=== PATIENT | female | born 1930 | race Caucasian/White ===

== ENCOUNTER 2016-09-02 12:45 | Inpatient (IN) | payer MEDICARE, OTHER ==
--- NOTE | ~2016-09-02 | HP ---
History And Physical [facility] [address] [place]. [address] NAME: SAMUEL ROSSI : 29 STATUS : ADM Amy PAT#: [id number] AGE: 85 ADM/REG DATE : 09/02/16 MR#: [id number] REPORT SERV DATE: 09/02/16 DICTATED BY: ARNIE LAMB DATE: 09/02/16 REPORT STATUS : Draft TRANSCRIBED BY: LIONEL DATE: 09/02/16 DATE OF ADMISSION: 09/02/2016 CHIEF COMPLAINT: Weakness in the left arm with stroke-type symptoms. HISTORY OF PRESENT ILLNESS: The patient is an 85-year-old female with past medical history of hypertension, hyperlipidemia, TIAs with also prior history of brain bleed in 06/2015, who presents around 10 to 10:30 today over five hours ago with left arm type weakness. No slurred speech. She has previously had an experience with TIAs. Symptoms were intermittent, moderate severity, have since improved. Initially when she came in, she was having difficulty elevating and extending hand and arm, but this has since resolved. She had no pain, radiating symptoms. No nausea, vomiting, fever, chills, or diarrhea. Did have weakness, but now is able to fully function. She is able to lift hand above head and appears to be able to do her ADLs. She is eating at bedside there are no worsening or relieving symptoms. Symptoms appear to be fairly better if not resolved. Emergency room and Neurology saw a non tPA candidate due to history of bleed and resolution of symptoms. ADDITIONAL REVIEW OF SYSTEMS: A 10-point review of systems negative except that noted in HPI. PAST MEDICAL HISTORY: Hypertension, hyperlipidemia, TIAs, and has had history of breast cancer, which the patient had radiation approximately 18 years ago in late . FAMILY HISTORY: Hypertension, cancer, and heart disease. SOCIAL HISTORY: . Lives alone. No smoking, alcohol, or illicits. Retired. Accompanied by son and grandson. SURGERIES: Has had gallbladder surgery. PHYSICAL EXAMINATION: VITAL SIGNS: The patient's temperature 98.2, pulse 98, respirations 18, O2 saturations 96% on room air, blood pressure 157/74. GENERAL: No acute distress. Calm, pleasant. HEAD: Normocephalic, atraumatic. EYES: No scleral icterus. EOMI. No nystagmus. ENT: Moist mucous membranes. Nares patent. Tongue midline. RESPIRATORY: Clear to auscultation. No wheezes, rales, or rhonchi. CV: Regular rate. No rubs or gallops. GI: Soft, nontender, and nondistended. Bowel sounds positive. : Deferred. MUSCULOSKELETAL: Moves all extremities x4. Equal hand production clerk bilaterally. No drift or deviation currently. SKIN: Warm and dry, but does have bruising on lower extremities. LYMPH: No cervical or supraclavicular lymphadenopathy. HEME: Does have bruising on lower extremities on shins. History And Physical [address] [place]. [address] NAME: SAMUEL ROSSI : 29 STATUS : ADM Amy PAT#: [id number] AGE: 85 ADM/REG DATE : 09/02/16 MR#: [id number] REPORT SERV DATE: 09/02/16 DICTATED BY: ARNIE LAMB DATE: 09/02/16 REPORT STATUS : Draft TRANSCRIBED BY: LIONEL DATE: 09/02/16 NEURO: Left and right arm appear symmetrical at this time, 5/5. Unable to symmetrically production clerk. No nystagmus in eyes. Symmetrical smile. Tongue midline. Symmetrical eyebrow. Sensation is still grossly intact. LOWER EXTREMITIES: Equal. No gross drift at this time. Symmetrical vocal dejuan and passed bedside swallow. Is able to tolerate p.o. at this time. PSYCH: Appropriate mood and affect. EKG: Normal sinus rhythm, rate 75, and QTc 415. ALLERGIES: NO KNOWN ALLERGIES. HOME MEDICATIONS: Aspirin 81 mg, atorvastatin 20 mg daily, and Prinivil 10 mg daily. IMAGING: CT, no acute intracranial abnormalities, but moderate cortical volume loss. Findings compatible with moderate chronic deep white matter ischemic changes. Findings compatible with small old left frontal cortical infarct. LABORATORY DATA: H and H 14.3 and 42.9, WBC 6.9, platelets 235. LFTs within normal limits. Troponin negative. Sodium 145, potassium 4.4, BUN and creatinine 17 and 0.93, glucose 85, chloride 108, bicarb 28. ASSESSMENT AND PLAN: 1. Transient ischemic attack. 2. Hypertension. 3. Hyperlipidemia. 4. Prior head bleed, non tPA candidate. 5. Transient ischemic attack history. PLAN: 1. For TIA, stroke protocol TIA initiated. Aspirin, high-dose statin, non tPA. PT, OT, ST evaluation. Currently having minimal residuals at this time, almost back to baseline. We will obtain MRI, MRA. Also evaluate carotids along with echocardiogram, as the patient has had history of TIAs in the past. We will complete workup. Has been already seen by Neurology team. 2. Hypertension. Lisinopril. 3. Hyperlipidemia. Increase statin dose. 4. Prior head bleed. Non tPA candidate and TIA history. All questions answered. DDN/MODL Arnie Lamb MD History And Physical [address] [address] NAME: SAMUEL ROSSI : 29 STATUS : ADM Amy PAT#: [id number] AGE: 85 ADM/REG DATE : 09/02/16 MR#: [id number] REPORT SERV DATE: 09/02/16 DICTATED BY: ARNIE LAMB DATE: 09/02/16 REPORT STATUS : Draft TRANSCRIBED BY: MODJuancarlos DATE: 09/02/16 / [id number] CC: Arnie Lamb MD
--- NOTE | ~2016-09-02 | DS ---
Discharge Summary [facility] [address] [place]. [address] NAME: SAMUEL ROSSI : 29 STATUS : DIS IN PAT#: [id number] AGE: 85 ADM/REG DATE : 09/04/16 MR#: [id number] REPORT SERV DATE: 09/06/16 DICTATED BY: JR. SALEH WILLIAM JOHN DATE: 09/04/16 REPORT STATUS : Draft TRANSCRIBED BY: LIONEL DATE: 09/04/16 ADMISSION DATE: 09/04/2016 DISCHARGE DATE: 09/04/2016 DISCHARGE DIAGNOSES: 1. 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 2. Hypertension. 3. Hyperlipidemia. 4. History of intracranial hemorrhage. 5. Right-sided carotid. OPERATIONS, PROCEDURES, AND TREATMENTS: Include: 1. CT of the brain done on 09/02/2016, which showed no acute intracranial abnormality. There was moderate cortical volume loss and findings compatible with moderate chronic deep white matter ischemic change, also, findings compatible small focal left frontal cortical infarct. 2. Chest x-ray done on 09/02/2016, showed no acute abnormality. 3. MRI of the brain done on 09/03/2016, showed anterior cerebral watershed infarctions to the right cerebral hemisphere. 4. MRA of the neck showed at least moderate stenosis of internal carotid artery on the right. MRA of the head showed diffuse atherosclerotic changes in the middle cerebral artery, anterior cerebral artery territories. 5. Carotid blood flow study done on 09/04/2016, showed right moderate stenosis category 2 representing 50% to 69% stenosis. The left carotid was category 1, there was antegrade flow in the left vertebral and right vertebral. 6. Urine culture with a contaminated sample. DISCHARGE MEDICATIONS: Aspirin 325 mg daily, Lipitor 80 mg daily, and lisinopril 10 mg daily. HOSPITAL COURSE: The patient is an 85-year-old female, who presented to the emergency room on 09/02/2016, with left arm weakness and slurred speech. She had a history of prior TIAs including an intracranial hemorrhage in the past. For complete details of the patient's history, presenting history, physical, and data please see Dr. Lamb's excellent dictated history and physical. The patient was admitted to the Clinical Decision Unit. She underwent MRI of the head, MRA of the neck and head with findings as above. She was found have had a stroke she was seen in consultation by Physical therapy and occupational therapy, and felt to be a good candidate for rehabilitation. She was also seen by speech therapy and felt to have no swallow difficulties. She was found to have right carotid stenosis, had a carotid flow study done, and was evaluated by Vascular Surgery, who recommended continued aspirin and statin. Follow up with Vascular in two months. If bed available, the patient will be transferred to [facility] today, 09/04/2016. Follow up will be per their discretion. For discharge exam and laboratory, please see daily progress note. Discharge Summary [facility] [address] [place]. [address] NAME: SAMUEL ROSSI : 29 STATUS : DIS IN PAT#: [id number] AGE: 85 ADM/REG DATE : 09/04/16 MR#: [id number] REPORT SERV DATE: 09/06/16 DICTATED BY: JR. SALEH WILLIAM JOHN DATE: 09/04/16 REPORT STATUS : Draft TRANSCRIBED BY: LIONEL DATE: 09/04/16 HORACIO/LIONEL Tyler Saleh Jr, MD / [id number] CC: Tyler Saleh Jr, MD BOEREMA, PAUL DANIEL
--- NOTE | ~2016-09-02 | CN ---
Consultation Report [facility] [address] [place]. [address] NAME: SAMUEL ROSSI : 29 STATUS : ADM Amy PAT#: [id number] AGE: 85 ADM/REG DATE : 09/02/16 MR#: [id number] REPORT SERV DATE: 09/02/16 DICTATED BY: RUBEN JANG DATE: 09/02/16 REPORT STATUS : Draft TRANSCRIBED BY: LIONEL DATE: 09/02/16 NEUROLOGICAL EVALUATION-CODE STROKE EMERGENCY ROOM. DATE OF CONSULTATION: 09/02/2016 HISTORY OF PRESENT ILLNESS: This is an 85-year-old white female with known history of prior strokes, who was admitted to the emergency room with two-hour duration of left arm weakness. As per patient's daughter who unfortunately was a poor historian, the patient started complaining of dizziness this morning and it was noted by the family that the patient was weak on the left side. The patient was brought to the emergency room shortly after the onset of her symptoms. The patient's history includes presence of intercerebral bleed- bleeding stroke in June of 2015. At that time, the patient was hospitalized at [facility] and had right-sided weakness which gradually improved. The patient has had previous strokes. There is no history of seizures or history of head trauma. MEDICATIONS: Prior to admission included aspirin 81 mg p.o. daily, atorvastatin 20 mg p.o. daily, lisinopril 10 mg p.o. at bedtime. The patient does have history of hypertension and mild dementia. ALLERGIES: NO KNOWN ALLERGIES. SOCIAL HISTORY: The patient's daughter stated she and her brother live nearby, and the patient following her stroke was living with them. However, lately she has been spending more time at her own house. The patient's recently. REVIEW OF SYSTEMS: The patient has been gradually improving after her stroke of 2014 and it is not clear whether the weakness was actually on the right side or on the left side. IMAGING: CT scan of the head showed moderate diffuse cortical volume loss, patchy hypoattenuation, periventricular subcortical white matter compatible with chronic deep white matter ischemic changes. Some focal encephalomalacia involving the left frontal lobe anteromedially representing old area of focal cortical infarct which appears to be the one that was apparently the bleeding stroke. No acute intracranial abnormalities were noted. The patient has had some difficulty with her memory and occasionally with her speech since her stroke. There is no history of leg edema or recent changes in medications. There is no history of recent travel out of this area. The patient does not have any difficulty with her speech, chewing, and swallowing routinely. PHYSICAL EXAMINATION: VITAL SIGNS: Blood pressure of 172/86, pulse was 72 and regular, respirations 14, temperature afebrile. HEAD AND NECK: Examination showed head to be normocephalic. There was no evidence of Consultation Report [facility] [address] [place]. [address] NAME: SAMUEL ROSSI : 29 STATUS : ADM Amy PAT#: [id number] AGE: 85 ADM/REG DATE : 09/02/16 MR#: [id number] REPORT SERV DATE: 09/02/16 DICTATED BY: RUBEN JANG DATE: 09/02/16 REPORT STATUS : Draft TRANSCRIBED BY: LIONEL DATE: 09/02/16 trauma. Eye exam: Sclerae were not icteric. Conjunctiva was pink. ENT exam show no evidence of abnormalities. Auscultation of the neck show no evidence of bruits. Neck was supple. There is no Kernig or Brudzinski. Cervical range of motion was not impaired. CHEST: Symmetrical. LUNGS: Clear to auscultation. HEART: Regular S1, S2. I did not appreciate any murmurs or rubs. ABDOMEN: Soft, nontender. No organomegaly. EXTREMITIES: Show no clubbing or cyanosis. There was no peripheral edema. Peripheral pulses were normal. SKIN: Clear. NEUROLOGICAL EXAMINATION: The patient was alert, oriented to self and oriented to our hospital. The patient thought she was at [facility]. Her speech was fluent. There was no evidence of aphasia or dysarthria. Thought content and mood were appropriate. The patient follow 1 and 2 step commands without any difficulty. The patient's NIH scale at this time was 1 for the arm weakness which was approximately 4/5 and 1 for the leg weakness 4-/5. The language, extraocular movements, sensory exam and extinction-inattention were all negative. Total NIH score of 2. IMPRESSION: Transient ischemic episode versus new acute cerebral vascular accident. The patient's neurological deficit is improving. However, it is quite possible that the patient had a new stroke. Her exclusion criteria for tPA are presently with past intracranial bleed. The patient has improving neurological deficits. We would admit her for close observation for regular admission to monitor for recurrent stroke, monitor for recurrent cardiac arrhythmias, evaluate all the other risk factors. I will follow stroke protocol. The patient is at risk for recurrent stroke in the next 24-48 hours is markedly increased. This is a critical care visit, total time 60 minutes. The inclusion and exclusion criteria for tPA were explained to the patient's daughter and to the patient. The patient has increased risk of falling and injury. We will obtain PT and OT and possible inpatient rehab if patient's symptoms persist. Serum lipid profile, TSH, vitamin D, vitamin B12, and folate level will be obtained. The records from the apparent recent MRI which was done "two weeks ago in this hospital" could not be located and perhaps other family members who will provide more accurate history for this patient. We will request records from [facility]. Thank you for allowing us to participate in this patient's care. LANE/LIONEL Ruben Jang MD / [id number] CC: Consultation Report [address] [address] NAME: SAMUEL ROSSI : 29 STATUS : ADM Amy PAT#: [id number] AGE: 85 ADM/REG DATE : 09/02/16 MR#: [id number] REPORT SERV DATE: 09/02/16 DICTATED BY: RUBEN JANG DATE: 09/02/16 REPORT STATUS : Draft TRANSCRIBED BY: MODL DATE: 09/02/16 Lucas Lamb MD
[2016-09-02 13:41] LABS: BASOPHILS 0.3 %; BASOPHILS ABSOLUTE 0.02 10/3/uL (0.0-0.16); EOSINOPHILS 4.5 %; EOSINOPHILS ABSOLUTE 0.31 10/3/uL (0.0-0.53); HEMATOCRIT 42.9 % (36.0-48.0); HEMOGLOBIN 14.3 g/dL (12.0-16.0); IMMATURE GRANULOCYTES 0.3 %; IMMATURE GRANULOCYTES ABSOLUTE 0.02 10/3/uL (0.0-0.11); LYMPHOCYTES 22.1 %; LYMPHOCYTES ABSOLUTE 1.52 10/3/uL (0.67-4.30); MEAN CORPUS HGB CONC 33.3 g/dL (32.0-36.0); MEAN CORPUSCULAR HEMOGLOB 30.4 pg (26.0-34.0); MEAN CORPUSCULAR VOLUME 91.3 fL (80-100); MEAN PLATELET VOLUME 9.6 fL (9.2-13.0); MONOCYTES 8.4 %; MONOCYTES ABSOLUTE 0.58 10/3/uL (0.21-1.20); NEUTROPHILS 64.4 %; NEUTROPHILS ABSOLUTE 4.44 10/3/uL (2.02-8.40); PLATELET COUNT 235 10/3/uL (150-400); RBC DISTRIBUTION WIDTH 12.7 % (12.0-16.0); WHITE BLOOD CELLS 6.9 10/3/uL (4.5-10.5)
[2016-09-02] MEDS ORDERED: LIPITOR20 PO (13:41)
[2016-09-02] MEDS ORDERED: HALF81 PO (13:41)
[2016-09-02] MEDS ORDERED: PRIN10 PO (13:41)
[2016-09-02 13:42] LABS: MANUAL DIFF NO %
[2016-09-02 13:56] LABS: PARTIAL THROMBO TIME 24.8 SEC (22.5-37.2); PROTIME (NOT ORD) 13.4 SEC (12.0-14.5)
[2016-09-02 13:58] LABS: ALBUMIN 3.4 G/DL (3.5-5.0); ALKALINE PHOSPHATASE 105 U/L (45-117); BUN (BLOOD UREA NITROGEN) 17 MG/DL (6-23); CALCIUM, SERUM 8.8 MG/DL (8.5-10.4); CHLORIDE, SERUM 108 MMOL/L (96-112); CO2 (CARBON DIOXIDE) 28 MMOL/L (24-34); CREATININE 0.93 MG/DL (0.55-1.02); GFR AFRICAN AMERICAN 64 ML/MIN (>=60); GFR NON AFRICAN AMERICAN 56 ML/MIN (>=60); GLOBULIN 3.5 G/DL (2.5-4.1); GLUCOSE, SERUM 85 MG/DL (60-99); POTASSIUM, SERUM 4.4 MMOL/L (3.5-5.3); SGOT(AST) 16 U/L (5-40); SGPT(ALT) 19 U/L (5-65); SODIUM, SERUM 145 MMOL/L (135-148); TOTAL BILIRUBIN 0.8 MG/DL (0-1.2); TOTAL PROTEIN 6.9 G/DL (6.0-8.5); TROPONIN I <0.02 NG/ML (<0.05)
[2016-09-02 21:43] LABS: ASCORBIC ACID (UR NOT ORDER) NEG (NEG); BILIRUBIN, URINE NEGATIVE (NEG); KETONE, URINE NEGATIVE (NEG); LEUKOCYTE ESTERASE(NOT OR MOD (NEG); WBC (NOT ORDERED) (RFLEX) 4 (0-5)
[2016-09-02 22:10] LABS: INFLUENZA A SCREEN NEGATIVE (NEGATIVE); INFLUENZA B SCREEN NEGATIVE (NEGATIVE)
[2016-09-03 02:46] LABS: CHOL/HDL RATIO(NOT ORDER) 2.5 (0-5); CHOLESTEROL 148 MG/DL (< 200); CK-MB 0.6 NG/ML; CPK 38 U/L (0-200); HDL CHOLESTEROL 59 MG/DL (> 49); LDL CHOLESTEROL 68 MG/DL (< 130); NON-HDL CHOLESTEROL 89 MG/DL (< 160); TRIGLYCERIDE 109 MG/DL (< 150); TROPONIN I <0.02 NG/ML (<0.05)
[2016-09-03 06:31] LABS: TROPONIN I <0.02 NG/ML (<0.05)
[2016-09-03 06:33] LABS: CK-MB 0.6 NG/ML; CPK 80 U/L (0-200)
[2016-09-04 04:25] LABS: BUN (BLOOD UREA NITROGEN) 16 MG/DL (6-23); CALCIUM, SERUM 8.5 MG/DL (8.5-10.4); CHLORIDE, SERUM 111 MMOL/L (96-112); CO2 (CARBON DIOXIDE) 27 MMOL/L (24-34); CREATININE 0.87 MG/DL (0.55-1.02); GFR AFRICAN AMERICAN 70 ML/MIN (>=60); GFR NON AFRICAN AMERICAN 60 ML/MIN (>=60); GLUCOSE, SERUM 93 MG/DL (60-99); POTASSIUM, SERUM 3.8 MMOL/L (3.5-5.3); SODIUM, SERUM 145 MMOL/L (135-148)
== END 2016-09-04 20:18 | DRG 66 ==
LOC: ER 12:45 → CDU1 15:24
PROVIDERS: Emergency Medicine; Internal Medicine; Student in an Organized Health Care Education/Training Program
DX: I63.231 Cerebral infarction due to unspecified occlusion or stenosis of right carotid arteries (principal); F03.90 Unspecified dementia, unspecified severity, without behavioral disturbance, psychotic disturbance, mood disturbance, and anxiety; G83.24 Monoplegia of upper limb affecting left nondominant side; I10 Essential (primary) hypertension; E78.5 Hyperlipidemia, unspecified; Z85.3 Personal history of malignant neoplasm of breast; Z92.3 Personal history of irradiation; Z82.49 Family history of ischemic heart disease and other diseases of the circulatory system; Z79.82 Long term (current) use of aspirin; R53.1 Weakness; R47.81 Slurred speech; R29.702 NIHSS score 2
CPT/HCPCS: 36415; 70450; 70544; 70548; 70551-52; 71010; 80048; 80053; 80061; 81001; 82550; 82553; 82962; 83036; 83735; 84443; 84484; 85025; 85610; 85730; 86850; 86900; 86901; 87086; 87804; 92610-GN; 93005; 93880; 97162-GP; 99285; A9270-GY; A9577; G8978-CJ-GP; G8979-CI-GP; G8996-CI-GN; G8997-CI-GN; G8998-CI-GN